=== PATIENT | female | born 1990 ===

== ENCOUNTER 2017-09-06 11:18 | Emergency (ER) | payer MEDICAID ==
[2017-09-06 11:19] VITALS: BMI 28.9
[2017-09-06 11:38] VITALS: RESP 18
--- NOTE | 2017-09-06 12:26 | C.PDOC ---
History Of Present Illness 26 y/o female presents to ED status post slipping and falling down while cleaning snow outside and complains of neck pain, upper back pain, and left shoulder pain. Patient denies loc, head injury, vision changes, neck stiffness or change in sensation. LMP 1 week ago as per patient - HPI Time Seen by Provider: 09/06/17 11:50 Chief Complaint (Nursing): Trauma History Per: Patient History/Exam Limitations: no limitations Onset/Duration Of Symptoms: Hrs Past Medical History Reviewed: Historical Data, Nursing Documentation, Vital Signs Vital Signs: Last Vital Signs Temp 98.5 F 09/06/17 13:02 Pulse 66 09/06/17 13:02 Resp 18 09/06/17 13:02 BP 99/63 L 09/06/17 13:02 Pulse Ox 99 09/06/17 14:05 - Medical History PMH: No Chronic Diseases Surgical History: Cholecystectomy - [facility] Procedures MANUAL ASSIST GURPREET NEC (10/14/13) Family History: States: No Known Family Hx - Social History Hx Tobacco Use: No Hx Alcohol Use: No Hx Substance Use: No - Immunization History Hx Tetanus Toxoid Vaccination: No Hx Influenza Vaccination: No Hx Pneumococcal Vaccination: No Review Of Systems Eyes: Negative for: Vision Change Gastrointestinal: Negative for: Nausea, Vomiting Musculoskeletal: Positive for: Neck Pain, Back Pain Skin: Negative for: Rash Neurological: Negative for: Weakness, Numbness Physical Exam - Physical Exam Appears: Non-toxic, No Acute Distress Skin: Warm, Dry, No Rash Head: Atraumatic, Normacephalic Eye(s): bilateral: Normal Inspection, EOMI Oral Mucosa: Moist Neck: Normal ROM, No Midline Cervical Tenderness, Paracervical Tenderness (left trapezius muscle tenderness), Other (mild swelling at base of neck and left upper trapezius) Chest: Symmetrical Cardiovascular: Rhythm Regular, No Murmur Respiratory: Normal Breath Sounds, No Rales, No Rhonchi, No Wheezing Gastrointestinal/Abdominal: Soft, No Tenderness, No Guarding, No Rebound Back: No CVA Tenderness, No Paraspinal Tenderness Extremity: Bilateral: Atraumatic, Normal ROM Neurological/Psych: Oriented x3, Normal Speech, Normal Motor, Normal Sensation Gait: Steady ED Course And Treatment O2 Sat by Pulse Oximetry: 99 (RA) Pulse Ox Interpretation: Normal - Other Rad Left shoulder X-Ray: Viewed By Me, Read By Radiologist Interpretation: PROCEDURE: Radiographs of the Left Shoulder. HISTORY: s.p slip and fall in snow. COMPARISON: No prior. FINDINGS: BONES: No acute fracture or destructive bony lesion identified. JOINTS: Normal. Glenohumeral and acromioclavicular joints preserved. No osteoarthritis. SOFT TISSUES: Normal. OTHER FINDINGS: None. IMPRESSION: Unremarkable radiographs of the left shoulder. Cervical spine AP X-Ray: Viewed By Me, Read By Radiologist Interpretation: PROCEDURE: Cervical Spine Radiographs. HISTORY: Pain. COMPARISON: None. FINDINGS: BONES: Straightened curvature. No fracture. Dens Intact .No destructive bony lesion appreciated throughout. DISC SPACES: No spondylolisthesis. Normal disc heights are preserved throughout as well as vertebral body heights. SOFT TISSUES: Normal. No prevertebral soft tissue swelling. OTHER FINDINGS: None. IMPRESSION: Straightened curvature. No fracture or spondylolisthesis identified. Medical Decision Making Medical Decision Making: Impression: Neck pain Plan: Left shoulder xray and Spine ordered. POC negative Xrays viewed by me showing no acute fracture or dislocation. Cervical xray shows straightening of curvature. Re-Eval: Patient remained well and in no distress. Discussed results with patient. recommend rest, ice or heat to area and ibuprofen. Rx given. Disposition Counseled Patient/Family Regarding: Diagnosis, Need For Followup, Rx Given - Disposition Disposition: HOME/ ROUTINE Disposition Time: 12:47 Condition: STABLE Additional Instructions: Apply heat to area for 15-20 minutes at a time 2-3 times per day Take Motrin for pain every 6-8 hours as needed, with food to not upset stomach Take Flexeril for muscle pain and spasm every 6-8 hours as needed, caution can cause drowsiness Follow up with your primary medical doctor or clinic in 2-5 days for further evaluation Return to the emergency department at any time if symptoms persist or worsen. Aplicar calor en el vic colten 15-20 minutos a la vez 2-3 veces por da [place] Motrin para el dolor cada 6-8 horas segn sea necesario, con alimentos para no molestar el estmago [place] Flexeril para el dolor muscular y espasmo cada 6-8 horas segn sea necesario, la precaucin puede causar somnolencia Jose L un seguimiento con pearson mdico primario o clnica en 2-5 crowe para arley evaluacin adicional Regrese al departamento de emergencia en cualquier momento si los sntomas persisten o empeoran. Yoni por permitir que el equipo de [facility] ENOVIX sea parte de pearson cuidado hoy. Pearson doctora hoy fue PA Clakr Prescriptions: Cyclobenzaprine [Cyclobenzaprine HCl] 10 mg PO TID #21 tab Ibuprofen [Motrin] 600 mg PO Q8 #30 tab Instructions: Muscle Spasms (DC) Forms: [employer] (Kittitian) Print Language: GUINEAN - POA Present On Arrival: None - Clinical Impression Clinical Impression: Contusion of shoulder, Neck muscle spasm - PA / CONTRACT ASSOCIATE MANAGER / Resident Statement MD/DO has reviewed & agrees with the documentation as recorded. - Scribe Statement The provider has reviewed the documentation as recorded by the Scribe Ludy Gregory All medical record entries made by the Scribe were at my direction and personally dictated by me. I have reviewed the chart and agree that the record accurately reflects my personal performance of the history, physical exam, medical decision making, and the department course for this patient. I have also personally directed, reviewed, and agree with the discharge instructions and disposition.
--- NOTE | 2017-09-06 13:01 | RAD ---
PROCEDURE: Radiographs of the Left Shoulder HISTORY: s.p slip and fall in snow COMPARISON: No prior. FINDINGS: BONES: No acute fracture or destructive bony lesion identified. JOINTS: Normal. Glenohumeral and acromioclavicular joints preserved. No osteoarthritis. SOFT TISSUES: Normal. OTHER FINDINGS: None. IMPRESSION: Unremarkable radiographs of the left shoulder.
[2017-09-06 13:02] VITALS: BP 99/63; PULSE 66; TEMP 98.5
--- NOTE | 2017-09-06 13:02 | RAD ---
PROCEDURE: Cervical Spine Radiographs. HISTORY: Pain. COMPARISON: None. FINDINGS: BONES: Straightened curvature. No fracture. Dens Intact .No destructive bony lesion appreciated throughout. DISC SPACES: No spondylolisthesis. Normal disc heights are preserved throughout as well as vertebral body heights. SOFT TISSUES: Normal. No prevertebral soft tissue swelling. OTHER FINDINGS: None. IMPRESSION: Straightened curvature. No fracture or spondylolisthesis identified.
[2017-09-06 13:54] VITALS: O2SAT 99
== END 2017-09-06 13:09 | disposition home or self-care (01) ==
LOC: C.ER 11:18
DX: S40.012A Contusion of left shoulder, initial encounter (principal); W01.0XXA Fall on same level from slipping, tripping and stumbling without subsequent striking against object, initial encounter; M62.838 Other muscle spasm